=== PATIENT | female | born 1975 ===

== ENCOUNTER 2020-05-08 19:35 | Emergency (ER) | payer OTHER, SELFPAY ==
[2020-05-08 19:41] VITALS: BP 148/91; PULSE 84; RESP 18; TEMP 37.1; O2SAT 99; BMI 24.8
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
[2020-05-08 20:43] VITALS: BP 134/81; PULSE 84; RESP 18; O2SAT 99
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
[2020-05-08 21:41] VITALS: BP 116/74; PULSE 78; RESP 18; O2SAT 96
--- NOTE | 2020-05-08 21:56 | PC.NURSE ---
i agree with this assessment
== END 2020-05-08 21:41 | disposition home or self-care (01) ==
PROVIDERS: Emergency Provider Physician Assistant
DX: S89.91XA Unspecified injury of right lower leg, initial encounter (principal); M54.6 Pain in thoracic spine; R07.81 Pleurodynia; V86.55XA Driver of 3- or 4- wheeled all-terrain vehicle (ATV) injured in nontraffic accident, initial encounter
CPT/HCPCS: 12345; 71101; 72072; 73562; 99282; 99283